=== PATIENT | female | born 1960 | race Hispanic/Latino ===

== ENCOUNTER → 2025-07-25 | Outpatient (CLI) | payer OTHER ==
--- NOTE | 2025-07-26 09:10 | HMCIMG ---
EXAM: CT Coronary Calcium Scoring CLINICAL HISTORY: Evaluation of coronary artery calcification and assessment of cardiovascular risk. TECHNIQUE: Non-contrast, ECG-gated CT scan of the heart was performed. Coronary calcium scoring was calculated using the Agatston method with a 130 HU threshold.FINDINGS: Calcified plaques are identified in multiple coronary vessels. Left Main (LM): No calcification (score 0.0). Left Anterior Descending (LAD): Calcified plaques noted with a total calcium score of 15.6. Left Circumflex (LCX): Two calcified plaques with a total calcium score of 7.9. Right Coronary Artery (RCA): One calcified plaque with a calcium score of 17.7. Total Coronary Calcium Score: 41.2IMPRESSION: Coronary artery calcification involving the LAD, LCX, and RCA. Total Agatston calcium score: 41.2 which corresponds to the 80th percentile. /Morrow
== END | disposition home or self-care (01) ==
LOC: RAH 15:16
PROVIDERS: ATTEND Internal Medicine Cardiovascular Disease
DX: Z13.6 Encounter for screening for cardiovascular disorders (principal); I25.10 Atherosclerotic heart disease of native coronary artery without angina pectoris
CPT/HCPCS: 75571